=== PATIENT | female | born 1970 | race Caucasian/White ===

== ENCOUNTER 2018-03-19 14:45 | Emergency (ER) | payer OTHER ==
[2018-03-19 14:55] VITALS: BP 125/82
--- NOTE | 2018-03-19 15:05 | UC ---
Skin Complaint HPI - HPI Summary HPI Summary: 47-year-old female presents complaining of 2 skin tags to her chest wall just below each breast. States that he developed approximately one year ago that have slowly increased in size. They are near her bra strap and occasionally rubbing become irritated. Denies any fevers, chills, or drainage from the lesions. - History of Current Complaint Chief Complaint: UCSkin Time Seen by Provider: 03/19/18 15:02 Stated Complaint: SKIN TAGS Hx Obtained From: Patient Hx Last Menstrual Period: 02/24 Pain Intensity: 2 - Allergy/Home Medications Allergies/Adverse Reactions: Allergies Allergy/AdvReac Type Severity Reaction Status Date / Time No Known Allergies Allergy Verified 03/19/18 14:55 Home Medications: Home Medications NK [No Home Medications Reported] 03/19/18 [History Confirmed 03/19/18] PMH/Surg Hx/FS Hx/Imm Hx Previously Healthy: Yes - Denies significant PMH - Surgical History Surgical History: None Surgery Procedure, Year, and Place: breast reduction - - Social History Occupation: Employed Full-time Lives: With Family Alcohol Use: Weekly Substance Use Type: None Smoking Status (MU): Never Smoked Tobacco Review of Systems All Other Systems Reviewed And Are Negative: Yes Constitutional: Negative: Fever, Chills Skin: Positive: Other - See HPI. Negative: Rash Respiratory: Positive: Negative Cardiovascular: Positive: Negative Musculoskeletal: Positive: Negative Neurological: Positive: Negative Is Patient Immunocompromised?: No Physical Exam - Summary Physical Exam Summary: GENERAL APPEARANCE: Well developed, well nourished, alert and cooperative, and appears to be in no acute distress. CARDIAC: Normal S1 and S2. No S3, S4 or murmurs. Rhythm is regular. There is no peripheral edema, cyanosis or pallor. Extremities are warm and well perfused. Capillary refill is less than 2 seconds. LUNGS: Clear to auscultation and percussion without rales, rhonchi, wheezing or diminished breath sounds. ABDOMEN: Positive bowel sounds. Soft, nondistended, nontender. No guarding or rebound. No masses or hepatosplenomegally. MUSKULOSKELETAL: ROM intact to all extremities. No joint erythema or tenderness. Normal muscular development. Normal gait. BACK: Examination of the spine reveals normal gait and posture, no spinal deformity or tenderness, decreased range of motion or muscular spasm. SKIN: General skin exam shows normal color, texture and turgor. Patient has 2 small flesh colored benign appearing skin tags to her anterior chest wall beneath her breasts. Triage Information Reviewed: Yes Vital Signs: Initial Vital Signs Temp 98.6 F 03/19/18 14:50 Pulse 71 03/19/18 14:50 Resp 18 03/19/18 14:50 BP 125/82 03/19/18 14:50 Pulse Ox 99 03/19/18 14:50 Vital Signs Reviewed: Yes Course/Dx - Course Course Of Treatment: 47-year-old female presents complaining of 2 skin tags to her chest wall just below each breast. States that he developed approximately one year ago that have slowly increased in size. They are near her bra strap and occasionally rubbing become irritated. Denies any fevers, chills, or drainage from the lesions. Afebrile. Vital signs stable. Patient has 2 small benign appearing skin tags to her chest wall as described above. Recommending that she try [id number] Tag Away prior to having these surgically removed. If [id number] treatment is not successful I have given her referral to general surgery for evaluation and treatment. Reviewed warning symptoms with the patient. She verbalizes understanding and agrees with plan of care. - Differential Diagnoses - Skin Complaint Differential Diagnoses: Abscess, Cellulitis, Other - malignancy - Diagnoses Provider Diagnosis: Skin tag Discharge - Sign-Out/Discharge Documenting (check all that apply): Patient Departure All imaging exams completed and their final reports reviewed: No Studies - Discharge Plan Condition: Stable Disposition: HOME Referrals: No Primary Care Phys,NOPCP [Primary Care Provider] - Additional Instructions: I would recommend that you try using an over the counter skin tag treatment called Tag Away before try surgical removal. If you try the over the counter treatment and it is not successful follow up with Dr. Mccarthy, general surgery, for removal. Seek immediate medical attention if you develop fever greater than 100.5 F, have increased pain, redness, swelling, or drainage from the lesions. - Billing Disposition and Condition Condition: STABLE Disposition: Home
== END 2018-03-19 15:25 | disposition home or self-care (01) ==
LOC: UCEAST 14:45
DX: L91.8 Other hypertrophic disorders of the skin (principal)
CPT/HCPCS: 99202; G0463

== ENCOUNTER 2018-03-24 11:08 | Emergency (ER) | payer OTHER ==
[2018-03-24] MEDS ORDERED: Lidocaine 1%* 5 ML VIAL INJ ONE (11:21)
[2018-03-24 11:27] VITALS: BP 147/93
--- NOTE | 2018-03-24 11:54 | UC ---
Skin Complaint HPI - HPI Summary HPI Summary: 47-year-old woman comes with a chief complaint of skin tags. She's noticed these for more than a year. There are 12 of them. One is underneath the left breast wonders underneath the right breast. She did try a topical skin tag removal for a week and it did not help. There right where her bra rubs on her skin and they're irritating her. - History of Current Complaint Chief Complaint: UCSkin Time Seen by Provider: 03/24/18 11:11 Stated Complaint: SKIN COMPLAINT Hx Last Menstrual Period: 03/24/17 Pain Intensity: 1 - Allergy/Home Medications Allergies/Adverse Reactions: Allergies Allergy/AdvReac Type Severity Reaction Status Date / Time No Known Allergies Allergy Verified 03/24/18 11:27 PMH/Surg Hx/FS Hx/Imm Hx Previously Healthy: Yes - Surgical History Surgical History: None Surgery Procedure, Year, and Place: breast reduction - - Family History Known Family History: Positive: Non-Contributory - Social History Alcohol Use: Weekly Substance Use Type: None Smoking Status (MU): Never Smoked Tobacco Review of Systems All Other Systems Reviewed And Are Negative: Yes Constitutional: Positive: Negative Skin: Positive: Other - SEE HPI Eyes: Positive: Negative ENT: Positive: Negative Respiratory: Positive: Negative Cardiovascular: Positive: Negative Gastrointestinal: Positive: Negative Motor: Positive: Negative Neurovascular: Positive: Negative Musculoskeletal: Positive: Negative Neurological: Positive: Negative Psychological: Positive: Negative Is Patient Immunocompromised?: No Physical Exam Triage Information Reviewed: Yes Appearance: Well-Appearing, No Pain Distress, Well-Nourished Vital Signs: Initial Vital Signs Temp 98.7 F 03/24/18 11:23 Pulse 69 03/24/18 11:23 Resp 18 03/24/18 11:23 BP 147/93 03/24/18 11:23 Pulse Ox 100 03/24/18 11:23 Vital Signs Reviewed: Yes Eye Exam: Normal Eyes: Positive: Conjunctiva Clear Neck exam: Normal Neck: Positive: Supple Respiratory: Positive: No respiratory distress Musculoskeletal Exam: Normal Musculoskeletal: Positive: Strength Intact, ROM Intact Neurological Exam: Normal Neurological: Positive: Muscle Tone Normal Psychological Exam: Normal Psychological: Positive: Age Appropriate Behavior Skin: Positive: Other - 2 SKIN TAGS: #1 3MM DIAMETER ON CHEST WALL UNDER LEFT BREAST #2 6MM DIAMETER ON CHEST WALL UNDER RIGHT BREAST Course/Dx - Course Course Of Treatment: I discussed further treatment of the skin tags. Patient wishes to have them removed. I discussed follow-up with dermatology or plastics to have them removed. Patient would prefer to have moved here in clinic and does not want to follow-up with dermatology or plastic surgery if not absolutely necessary. I removed the skin tags. For both of them I used Betadine prep. 1% lidocaine. I clipped both of the skin tags off using surgical scissors. Bleeding was controlled with direct pressure dressing. ANTIBIOTIC ointment was applied. - Diagnoses Provider Diagnosis: Cutaneous skin tags Discharge - Sign-Out/Discharge Documenting (check all that apply): Patient Departure All imaging exams completed and their final reports reviewed: No Studies - Discharge Plan Condition: Stable Disposition: HOME Patient Education Materials: Acute Wound Care (ED) Referrals: [facility] [place] [facility] [Outside] Additional Instructions: FOLLOW UP WITH YOUR DOCTOR IF YOUR SKIN TAG REMOVAL WOUNDS ARE NOT COMPLETELY IMPROVED. GET RECHECKED FOR ANY WORSENING OF YOUR CONDITION OR QUESTIONS OR CONCERNS. - Billing Disposition and Condition Condition: STABLE Disposition: Home
== END 2018-03-24 12:05 | disposition home or self-care (01) ==
LOC: UCEAST 11:08
DX: L91.8 Other hypertrophic disorders of the skin (principal)
CPT/HCPCS: 11200; 99211; G0463